=== PATIENT | male | born 1995 | race Caucasian/White ===

== ENCOUNTER 2020-03-17 18:58 | Emergency (ER) | payer SELFPAY ==
[2020-03-17 19:45] VITALS: BP 111/64; PULSE 64; RESP 16; TEMP 36.7; O2SAT 98; BMI 27.1
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
[2020-03-17 23:15] VITALS: BP 110/71; PULSE 71; RESP 16; TEMP 36.8; O2SAT 98
== END 2020-03-17 23:16 | disposition home or self-care (01) ==
PROVIDERS: Emergency Provider Nurse Practitioner Family
DX: Z04.1 Encounter for examination and observation following transport accident (principal); V89.2XXA Person injured in unspecified motor-vehicle accident, traffic, initial encounter
CPT/HCPCS: 12345; 70486; 72125; 99281; 99282